=== PATIENT | male | born 1940 | race Caucasian/White ===

== ENCOUNTER → 2024-10-18 | Outpatient (CLI) | payer MEDICARE, SELFPAY ==
--- NOTE | 2024-10-18 14:00 | ECHO_ITS ---
Transthoracic Echo Report Ht (in): 68 Wt (lb): 205 Exam Location: Echo Lab Status: Preadmit [employer] Developer: MAKENNA Stallworth^^^^ Indications: Procedure Performed: BP: 124 / 76 HR: Rhythm: Atrial fibrillation Technical Quality: Fair MEASUREMENTS (Male / Female) Normal Values 2D ECHO LV Diastolic Diameter PLAX 4.6 cm 4.2 - 5.9 / 3.9 - 5.3 cm LV Systolic Diameter PLAX 2.9 cm IVS Diastolic Thickness 0.9 cm 0.6 - 1.0 / 0.6 - 0.9 cm LVPW Diastolic Thickness 0.9 cm 0.6 - 1.0 / 0.6 - 0.9 cm LV Relative Wall Thickness 0.4 LVOT Diameter 1.7 cm Aortic Root Diameter 3.6 cm LA Systolic Diameter LX 2.9 cm 3.0 - 4.0 / 2.7 - 3.8 cm LV Ejection Fraction MOD BP 40.6 % >= 55 % LV Ejection Fraction MOD 4C 39.1 % LV Ejection Fraction 4C AL 38.6 % LV Ejection Fraction MOD 2C 41.4 % LV Ejection Fraction 2C AL 39.9 % LA Volume Index 52.6 cm?/m? 16 - 28 cm?/m? Ascending Aorta Diameter 3.2 cm DOPPLER AV Peak Velocity 291.7 cm/s AV Peak Gradient 34.0 mmHg AV Mean Gradient 20.0 mmHg AV Velocity Time Integral 75.3 cm LVOT Peak Velocity 69.5 cm/s LVOT Peak Gradient 1.9 mmHg LVOT Velocity Time Integral 17.4 cm AV Area Cont Eq vti 0.5 cm? AV Area Cont Eq pk 0.5 cm? MV Peak Velocity 133.0 cm/s MV Peak Gradient 7.1 mmHg MV Mean Velocity 71.7 cm/s MV Mean Gradient 3.0 mmHg MV Area PHT 3.5 cm? MR Peak Velocity 278.0 cm/s MR Peak Gradient 30.9 mmHg Mitral E Point Velocity 97.7 cm/s LV E' Lateral Velocity 6.2 cm/s Mitral E to LV E' Lateral Ratio 15.8 LV E' Septal Velocity 2.9 cm/s Mitral E to LV E' Septal Ratio 33.2 TR Peak Velocity 271.5 cm/s TR Peak Gradient 29.5 mmHg PV Peak Velocity 74.6 cm/s PV Peak Gradient 2.2 mmHg RVOT Peak Velocity 48.8 cm/s FINDINGS Left Ventricle The left ventricular ejection fraction is moderately decreased, estimated at 35-40%. There is grade III diastolic dysfunction of the left ventricle (restrictive filling pattern). There is abnormal septal motion. Right Ventricle The right ventricle is normal in size and systolic function. The estimated right ventricular systolic pressure, 32 mmHg. Left Atrium Moderately increased left atrial volume 52.6 mL/m?. Right Atrium The right atrial cavity size is mildly increased. Atrial Septum The interatrial septum appears normal with no evidence of a shunt. Aorta The aorta is normal by two-dimensional, color flow and Doppler interrogation. Mitral Valve Mild mitral regurgitation. Mild mitral annular calcification. Aortic Valve Moderate aortic valve stenosis, mean gradient 20 mmHg, SUSIE 0.52 cm?. Tricuspid Valve There is mild tricuspid valve regurgitation. Pulmonic Valve Trivial pulmonic valve regurgitation. Vessels The pulmonary artery appears normal. The inferior vena cava pulmonary and hepatic veins appear normal. Pericardium There is a tiny, hemodynamically insignificant pericardial effusion. CONCLUSIONS indication: CHF LV appears reduced in function 35-40% EF. Diastolic Dysfunction III. RV appears normal with RVSP 32 mmHg. LA is moderately dilated RA is mildly dilated. Mild MR & MAC Moderate Mild TR Kaylee Meyer (Electronically Signed) Final Date: 25 October 2024 13:40
== END | disposition home or self-care (01) ==
PROVIDERS: PCP Physician Assistant; Referring Provider Internal Medicine; Visit Provider Internal Medicine
DX: I08.3 Combined rheumatic disorders of mitral, aortic and tricuspid valves (principal); Z98.61 Coronary angioplasty status
CPT/HCPCS: 93306

== ENCOUNTER 2024-12-21 06:34 | Day surgery (SDC) | payer MEDICARE, SELFPAY ==
[2024-12-19 15:37] VITALS: BMI 29.3
--- NOTE | 2024-12-20 07:00 | EKG_ITS ---
[facility] Test Date: 2024-12-20 Pat Name: DAVID DEWEY Department: Room: - Gender: Male Superintendent Circus: JOELYV2 : 1940 Requested By: Samina Meyer Order Number: [id number] Reading MD: Samina Meyer Measurements Intervals [place] Rate: 76 P: SC: QRS: 22 QRSD: 145 T: 31 QT: 413 QTc: 466 Interpretive Statements ATRIAL FIBRILLATION WITH ABERRANT CONDUCTION OR VENTRICULAR PREMATURE COMPLEXES RIGHT BUNDLE BRANCH BLOCK [120+ ms QRS DURATION, UPRIGHT V1, 40+ ms S IN I/aVL/V4/V5/V6] POSSIBLE ANTERIOR MYOCARDIAL INFARCTION , OF INDETERMINATE AGE [30 ms Q WAVE IN V3/V4, OR R < 0.2 mV IN V4] MODERATE T-WAVE ABNORMALITY, CONSIDER LATERAL ISCHEMIA [-0.1+ mV T WAVE IN I/aVL/V5/V6] No previous ECG available for comparison /[id number]
[2024-12-20 10:57] LABS: Basophils % (Auto) 0 % (0-2.5); Eosinophils # (Auto) 0.1 Thou/mm3 (0.0-0.5); Eosinophils % (Auto) 1 % (0-10); Hematocrit 36.5 % (41.0-53.0); Hemoglobin 11.6 g/dL (13.5-16.0); Immature Granulocytes % (Auto) 0 % (0-0); Immature Granulocytes Auto 0.01 Thou/mm3 (0.00-0.00); Lymphocytes # (Auto) 0.6 Thou/mm3 (1.0-4.8); Lymphocytes % (Auto) 11 % (10-50); Mean Corpuscular HGB Conc 31.8 g/dl (31.0-37.0); Mean Corpuscular Hemoglobin 25.2 pg (25.0-35.0); Mean Corpuscular Volume 79 fL (80-100); Monocytes # (Auto) 0.4 Thou/mm3 (0.0-0.8); Monocytes % (Auto) 8 % (0-12); Neutrophils # (Auto) 4.4 Thou/mm3 (1.8-7.7); Neutrophils % (Auto) 79 % (37-80); Nucleated Red Blood Cell % 0 /100 WBC (0); Platelet Count 152 Thou/mm3 (140-440); RDW Standard Deviation 50.1 fL (35.1-43.9); Red Blood Count 4.61 Miln/mm3 (4.50-5.90); White Blood Count 5.6 Thou/mm3 (3.8-10.6)
[2024-12-20 11:12] LABS: Anion Gap 10 (7-16); BUN/Creatinine Ratio 15 Ratio (12-20); Blood Urea Nitrogen 16 mg/dL (9-23); Calcium 8.8 mg/dL (8.3-10.6); Carbon Dioxide 29.8 mMol/L (20.0-31.0); Chloride 108 mMol/L (98-107); Creatinine (Component) 1.1 mg/dL (0.6-1.3); Estimated Creatinine Clearance 55.5 mL/min (>60); Glucose 95 mg/dL (74-106); INR 1.1 (0.9-1.3); Osmolality,Calculated 295 (275-295); Partial Thromboplastin Time 29.2 Seconds (22.0-36.0); Potassium 4.5 mMol/L (3.4-5.1); Prothrombin Time 12.4 Seconds (9.0-12.2); Sodium 148 mMol/L (136-145); eGFR > 60 See Note
[2024-12-21] VITALS (16 sets, daily range): BP systolic 101–150; BP diastolic 50–87; PULSE 56–78; RESP 12–23; TEMP 36.1–36.7; O2SAT 95–99; BMI 29.4
[2024-12-21] MEDS: DIAZEPAM 5 MG TABLET PO (07:15)
--- NOTE | 2024-12-21 08:25 | ESOP_ITS ---
Cardiac Cath Procedure Procedure Narrative Procedure dates 12/21/2024 Title of the procedure 1.left heart catheterization 2.left coronary angiogram 3.right coronary angiogram 4.left ventriculogram 5.conscious sedation 6.radiographic interpretation supervision 7.ultrasound guidance for right radial access Indication for the procedure This is an 84-year-old gentleman with past medical history of hypertension diabetes hyperlipidemia Chronic atrial fibrillation He was complaining of atypical chest pain He has a prior history of coronary artery disease angioplasty and stent placement He did undergo stress test which was equivocal In view of patient's ongoing chest pain we decided to proceed with cardiac catheter and coronary angiogram Procedure This is done in the cardiac lab under current electrocardiographic monitoring intermittent blood pressure monitoring right radial Access obtained using modified Seldinger technique with ultrasound guidance 6 [place] glide sheath was placed TIG 4 catheter used for selective injection of the left coronary artery TIG 4 catheter used for selective in the right coronary artery TIG 4 catheter used for left ventriculogram Findings Hemodynamics Overall left ventricular systolic function is normal Approximate ejection fraction 55% End-diastolic pressure was 16 mmHg There is no gradient across the aortic valve Coronary anatomy 1.left main coronary artery appears normal 2.left anterior descending artery appears to have a stent in the midsegment appears to be patent 3.diagonal appears to show luminal irregularities 4.left circumflex appears to have no significant lesion 5.right coronary is a dominant vessel, no significant lesion noted Conclusion Patent stent in the mid LAD No other significant lesion noted
--- NOTE | 2024-12-21 09:43 | PC.NURSE ---
0826 patient is awake, alert, breathing unlabored, s/p LHC by Dr. Meyer, TR band present to right wrist, no bleeding or hematoma noted. Report received from Ambrosio GAMBOA, patient to recover for 3 hours and 1hr post TR band removal. Resume eliquis tomorrow.
--- NOTE | 2024-12-21 11:02 | PC.NURSE ---
1030 TR band removed, bleeding noted, manual pressure applied 1045 manual pressure removed to right wrist, no active bleeding or hematoma noted, site covered with tegaderm and coban.
--- NOTE | 2024-12-21 13:03 | PC.NURSE ---
1205 patient is awake, alert, breathing unlabored, dressing to right wrist dry with no bleeding or hematoma. patient able to tolerate food tray with no nausea or vomiting, able to void via urinal. meets discharge criteria, discharge instructions given to patient and daughter Neeta, patient discharged home in wheelchair with all belongings.
== END 2024-12-21 12:05 | disposition home or self-care (01) ==
PROVIDERS: PCP Physician Assistant; Referring Provider Internal Medicine; Visit Provider Internal Medicine
PROC: (CPT 93458; principal; 2024-12-21 07:30)
DX: R07.89 Other chest pain (principal); I25.10 Atherosclerotic heart disease of native coronary artery without angina pectoris; E11.9 Type 2 diabetes mellitus without complications; E78.5 Hyperlipidemia, unspecified; I10 Essential (primary) hypertension; I48.20 Chronic atrial fibrillation, unspecified; Z95.5 Presence of coronary angioplasty implant and graft; Z01.810 Encounter for preprocedural cardiovascular examination
CPT/HCPCS: 93458; 36415; 80048; 85025; 85610; 85730; 93005; 99152; 99153; A4216; A4649; C1769; C1887; C1894; J0171; J0461; J0583; J1643; J2250; J2310; J2371; J3010; J3490; A9270; J2305